=== PATIENT | male | born 1955 | race Caucasian/White ===

== ENCOUNTER 2019-06-21 07:08 | Day surgery (SDC) | payer BC ==
[2019-06-21] MEDS ORDERED: Propofol 200 MG/20 ML SDV IV ONE (07:09)
[2019-06-21] MEDS ORDERED: Lidocaine 2% 5 ML SDV INJECT ONE (07:09)
[2019-06-21] MEDS ORDERED: Lidocaine 1% PF 2 ML SDV INJECT ONE (07:09)
[2019-06-21] MEDS ORDERED: Lactated Ringers 1,000 ML IV SCH (07:15)
[2019-06-21] MEDS ORDERED: Sodium Chloride 0.9% 10 ML Syringe FLUSH PRN (07:15)
--- NOTE | 2019-06-21 09:12 | PCM.OPNOTE ---
- General Post-Op/Procedure Note Date of Surgery/Procedure: 06/21/19 Operative Procedure(s): c scope Findings: scattered diverticulosis Pre Op Diagnosis: screening Post-Op Diagnosis: scattered diverticulosis Anesthesia Technique: MAC Primary Surgeon: Frank Vora Anesthesia Provider: Fran Hodge Pathology: none Complications: None Condition: Good Free Text/Narrative:: see dictation
--- NOTE | 2019-06-21 13:38 | OR ---
DATE OF OPERATION: 06/21/2019 SURGEON: Frank Vora MD PROCEDURE PERFORMED: Colonoscopy. PREOPERATIVE DIAGNOSIS: Need for colon cancer screening. POSTOPERATIVE DIAGNOSIS: Diverticulosis. INDICATIONS FOR PROCEDURE: This is a 63-year-old white male, who presents for screening colonoscopy. He was offered and accepted same. DESCRIPTION OF OPERATION: After an excellent IV sedation was administered, digital rectal exam was performed. No marked abnormality was noted. Flexible colonoscope was inserted and advanced to the cecum. Prep was excellent. Following findings were noted. Ascending colon, unremarkable. Transverse colon, occasional diverticula. Descending colon, occasional diverticula. Sigmoid, occasional diverticula. Rectum and anus, unremarkable. Colon was deflated. Scope was removed. The patient tolerated the procedure well. RECOMMENDATIONS: Repeat colonoscopy in 10 years. /[id number] /MODL
== END 2019-06-21 10:06 | disposition home or self-care (01) ==
LOC: FB.SDS 07:08
PROVIDERS: ATTEND Surgery
DX: Z12.11 Encounter for screening for malignant neoplasm of colon (principal); K57.30 Diverticulosis of large intestine without perforation or abscess without bleeding; I12.9 Hypertensive chronic kidney disease with stage 1 through stage 4 chronic kidney disease, or unspecified chronic kidney disease; N18.3 Chronic kidney disease, stage 3 (moderate); Z88.0 Allergy status to penicillin; Z88.8 Allergy status to other drugs, medicaments and biological substances; Z79.899 Other long term (current) drug therapy
CPT/HCPCS: 45378; J2001; J2704; J7120

== ENCOUNTER 2020-04-08 18:29 | Emergency (ER) | payer BC ==
--- NOTE | 2020-04-08 18:39 | EDM.PDOC ---
ED HPI GENERAL MEDICAL PROBLEM - General Stated Complaint: POSSIBLE COVID Time Seen by Provider: 04/08/20 19:45 Source of Information: Reports: Patient History Limitations: Reports: No Limitations - History of Present Illness INITIAL COMMENTS - FREE TEXT/NARRATIVE: 64 yo gentleman with h/o CLL on chemotherapy. Presented to the ER with h/o Fever. Noted a Home temp of 101.5. Had slight cough. Was concerned and decided to come to the ER for further evaluation. No abdominal pain, nausea or vomiting. Onset: Today Onset Date: 04/08/20 Onset Time: 08:00 Duration: Hour(s):, Week(s): Associated Symptoms: Reports: Cough, Fever/Chills generalized Pain Score (Numeric/FACES): 0 - Related Data Allergies Allergy/AdvReac Type Severity Reaction Status Date / Time ibrutinib Allergy Other Verified 06/21/19 07:24 Penicillins Allergy Rash Verified 06/21/19 07:24 Home Meds: Home Meds Cetirizine [ZyrTEC] 10 mg PO DAILY 06/17/19 [History] valACYclovir HCl [Valtrex] 500 mg PO DAILY 06/17/19 [History] Past Medical History HEENT History: Reports: Impaired Vision, Sinusitis Cardiovascular History: Reports: None Respiratory History: Reports: None Gastrointestinal History: Reports: Gastritis Genitourinary History: Reports: Chronic Renal Insuffiency [employer] History: Reports: None Musculoskeletal History: Reports: None Neurological History: Reports: None Psychiatric History: Reports: None Endocrine/Metabolic History: Reports: Obesity/BMI 30+ Hematologic History: Reports: None Immunologic History: Reports: None Oncologic (Cancer) History: Reports: None Dermatologic History: Reports: None - Past Surgical History Head Surgeries/Procedures: Reports: None HEENT Surgical History: Reports: Other (See Below) Other HEENT Surgeries/Procedures: EAR SURGERY- STAPEDECTOMY GI Surgical History: Reports: Other (See Below) Other GI Surgeries/Procedures: BRONCHOSCOPY Social & Family History - Caffeine Use Caffeine Use: Reports: Coffee ED ROS GENERAL - Review of Systems Review Of Systems: See Below Constitutional: Reports: Fever HEENT: Reports: No Symptoms Respiratory: Reports: No Symptoms Cardiovascular: Reports: No Symptoms Endocrine: Reports: No Symptoms GI/Abdominal: Reports: No Symptoms : Reports: No Symptoms Musculoskeletal: Reports: No Symptoms Skin: Reports: No Symptoms Neurological: Reports: No Symptoms Psychiatric: Reports: No Symptoms Hematologic/Lymphatic: Reports: No Symptoms Immunologic: Reports: No Symptoms ED EXAM, GENERAL - Physical Exam Exam: See Below Exam Limited By: No Limitations General Appearance: Alert, WD/WN, No Apparent Distress Eye Exam: Bilateral Eye: EOMI, PERRL Ears: Normal External Exam, Normal Canal, Hearing Grossly Normal, Normal TMs Ear Exam: Bilateral Ear: Auricle Normal, Canal Normal Nose: Normal Inspection, Normal Mucosa, No Blood Throat/Mouth: Normal Inspection, Normal Lips, Normal Teeth, Normal Gums, Normal Oropharynx, Normal Voice Head: Atraumatic, Normocephalic Neck: Normal Inspection, Supple, Non-Tender, Full Range of Motion Respiratory/Chest: No Respiratory Distress, Lungs Clear, Normal Breath Sounds, No Accessory Muscle Use, Chest Non-Tender Cardiovascular: Normal Peripheral Pulses, Regular Rate, Rhythm, No Edema, No Gallop, No JVD, No Murmur GI/Abdominal: Normal Bowel Sounds, Soft, Non-Tender, No Organomegaly, No Distention Back Exam: Normal Inspection, Full Range of Motion Extremities: Normal Inspection, Normal Range of Motion, Non-Tender Neurological: Alert, Oriented, CN II-XII Intact, Normal Cognition Psychiatric: Normal Affect, Normal Mood Skin Exam: Warm, Dry, Intact, Normal Color, No Rash Lymphatic: No Adenopathy Course - Vital Signs Last Recorded V/S: Last Vital Signs Temp 36.8 C 04/08/20 19:55 Pulse 95 04/08/20 19:55 Resp 20 04/08/20 19:55 BP 138/73 04/08/20 19:55 Pulse Ox 97 04/08/20 19:55 - Orders/Labs/Meds Orders: Active Orders 24 hr Category Date Time Status CXR [Chest 2V] [CR] Stat Exams 04/08/20 18:40 Taken Isolation [COMM] Routine Oth 04/08/20 18:40 Ordered Labs: Laboratory Tests 04/08/20 04/08/20 04/08/20 Range/Units 18:37 18:48 18:48 WBC 11.0 H (3.2-10.1) x10-3/uL RBC 4.17 (3.90-5.90) x10(6)uL Hgb 13.2 (12.9-17.7) g/dL Hct 39.6 (38.3-50.1) % MCV 95.0 (80.8-98.7) fL MCH 31.6 (27.0-33.3) pg MCHC 33.3 (28.7-35.3) g/dL RDW 12.9 (12.4-15.0) % Plt Count 126 (117-477) x10(3)uL MPV 9.6 (6.7-11.0) fL Neut % (Auto) 82.8 H (40.3-71.8) % Lymph % (Auto) 10.6 L (15.8-45.3) % Holmes % (Auto) 5.7 (5.5-15.2) % Eos % (Auto) 0.7 (0.1-6.8) % Baso % (Auto) 0.2 L (0.3-3.8) % Neut # (Auto) 9.1 H (1.7-6.9) x10-3/uL Lymph # (Auto) 1.2 (0.5-4.5) x10-3/uL Holmes # (Auto) 0.6 (0.0-1.2) x10-3/uL Eos # (Auto) 0.1 (0.0-0.6) x10-3/uL Baso # (Auto) 0.0 (0.0-0.3) x10-3/uL Sodium 135 (135-145) mmol/L Potassium 4.1 (3.5-5.3) mmol/L Chloride 100 (100-110) mmol/L Carbon Dioxide 24 (21-32) mmol/L BUN 26 H (7-18) mg/dL Creatinine 1.5 H (0.70-1.30) mg/dL Est Cr Clr Drug Dosing TNP Estimated GFR (MDRD) 47 L (>60) BUN/Creatinine Ratio 17.3 (9-20) Glucose 110 (80-116) mg/dL Calcium 8.7 (8.6-10.2) mg/dL Total Bilirubin 1.1 (0.1-1.3) mg/dL AST 17 (5-25) IU/L ALT 20 (12-36) U/L Alkaline Phosphatase 55 L (56-112) IU/L C-Reactive Protein (0.5-0.9) mg/dL Total Protein 6.6 (6.0-8.0) g/dL Albumin 3.9 (3.2-4.6) g/dL Globulin 2.7 g/dL Albumin/Globulin Ratio 1.4 Urine Color (YELLOW) Urine Appearance (CLEAR) Urine pH (5.0-6.5) Ur Specific [place] (1.010-1.025) Urine Protein (NEGATIVE) mg/dL Urine Glucose (UA) (NORMAL) mg/dL Urine Ketones (NEGATIVE) mg/dL Urine Occult Blood (NEGATIVE) Urine Nitrite (NEGATIVE) Urine Bilirubin (NEGATIVE) Urine Urobilinogen (NEGATIVE) mg/dL Ur Leukocyte Esterase (NEGATIVE) Urine RBC (0-5) Urine WBC (0-5) Ur Squamous Epith Cells (NS,R,O) Urine Bacteria (NS) SARS-CoV-2 RNA (JOCELYN) Negative (NEGATIVE) 04/08/20 04/08/20 Range/Units 18:48 19:00 WBC (3.2-10.1) x10-3/uL RBC (3.90-5.90) x10(6)uL Hgb (12.9-17.7) g/dL Hct (38.3-50.1) % MCV (80.8-98.7) fL MCH (27.0-33.3) pg MCHC (28.7-35.3) g/dL RDW (12.4-15.0) % Plt Count (117-477) x10(3)uL MPV (6.7-11.0) fL Neut % (Auto) (40.3-71.8) % Lymph % (Auto) (15.8-45.3) % Holmes % (Auto) (5.5-15.2) % Eos % (Auto) (0.1-6.8) % Baso % (Auto) (0.3-3.8) % Neut # (Auto) (1.7-6.9) x10-3/uL Lymph # (Auto) (0.5-4.5) x10-3/uL Holmes # (Auto) (0.0-1.2) x10-3/uL Eos # (Auto) (0.0-0.6) x10-3/uL Baso # (Auto) (0.0-0.3) x10-3/uL Sodium (135-145) mmol/L Potassium (3.5-5.3) mmol/L Chloride (100-110) mmol/L Carbon Dioxide (21-32) mmol/L BUN (7-18) mg/dL Creatinine (0.70-1.30) mg/dL Est Cr Clr Drug Dosing Estimated GFR (MDRD) (>60) BUN/Creatinine Ratio (9-20) Glucose (80-116) mg/dL Calcium (8.6-10.2) mg/dL Total Bilirubin (0.1-1.3) mg/dL AST (5-25) IU/L ALT (12-36) U/L Alkaline Phosphatase (56-112) IU/L C-Reactive Protein 5.8 H* (0.5-0.9) mg/dL Total Protein (6.0-8.0) g/dL Albumin (3.2-4.6) g/dL Globulin g/dL Albumin/Globulin Ratio Urine Color Yellow (YELLOW) Urine Appearance Clear (CLEAR) Urine pH 5.0 (5.0-6.5) Ur Specific [place] 1.015 (1.010-1.025) Urine Protein Trace (NEGATIVE) mg/dL Urine Glucose (UA) Normal (NORMAL) mg/dL Urine Ketones 15 H (NEGATIVE) mg/dL Urine Occult Blood Negative (NEGATIVE) Urine Nitrite Negative (NEGATIVE) Urine Bilirubin Negative (NEGATIVE) Urine Urobilinogen Normal (NEGATIVE) mg/dL Ur Leukocyte Esterase Negative (NEGATIVE) Urine RBC 0-5 (0-5) Urine WBC 0-5 (0-5) Ur Squamous Epith Cells Few H (NS,R,O) Urine Bacteria Rare H (NS) SARS-CoV-2 RNA (JOCELYN) (NEGATIVE) Meds: Medications Discontinued Medications Generic Name Dose Route Start Last Admin Trade Name Freq PRN Reason Stop Dose Admin Azithromycin 500 mg 04/08/20 20:17 04/08/20 20:23 Zithromax PO 04/08/20 20:18 500 mg ONETIME ONE Administration Departure - Departure Time of Disposition: 20:30 Disposition: Home, Self-Care 01 Condition: Good Clinical Impression: Fever - Discharge Information *PRESCRIPTION DRUG MONITORING PROGRAM REVIEWED*: No *COPY OF PRESCRIPTION DRUG MONITORING REPORT IN PATIENT TRAE: No Instructions: Fever, Adult, Azithromycin tablets Referrals: PCP,None [Primary Care Provider] - Forms: ED Department Discharge Sepsis Event Note (ED) - Focused Exam Vital Signs: Vital Signs Temp Pulse Resp BP Pulse Ox 04/08/20 19:55 36.8 C 95 20 138/73 97 04/08/20 18:32 38.0 C 110 H 17 150/78 H 100 - Problem List & Annotations (1) Fever SNOMED Code(s): 755393077 Code(s): R50.9 - FEVER, UNSPECIFIED Status: Acute Current Visit: Yes - My Orders Last 24 Hours: My Active Orders 04/08/20 18:40 CXR [Chest 2V] [CR] Stat Isolation [COMM] Routine - Assessment/Plan Last 24 Hours: My Active Orders 04/08/20 18:40 CXR [Chest 2V] [CR] Stat Isolation [COMM] Routine
[2020-04-08] MEDS ORDERED: Azithromycin 500 MG Tab PO ONE (20:17)
--- NOTE | 2020-04-10 10:39 | CR ---
INDICATION: Fever. CHEST TWO VIEWS: PA and lateral views of the chest were obtained 04/08/20 and revealed bridging hyperostotic changes in the mid to lower thoracic spine anteriorly and right laterally. The heart is normal in size and shaped, mediastinum is essentially unremarkable. A definite active infiltrate or effusion was not identified. However, there is mild bronchial wall cuffing at the lung bases, which may be on the fibrosis and/or active peribronchial disease, and should be correlated clinically. IMPRESSION: 1. Bronchial wall cuffing at the lung bases is mild and nonspecific - correlate clinically. 2. 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 MTDD
== END 2020-04-08 20:57 | disposition home or self-care (01) ==
LOC: FB.ED 18:29
DX: R50.9 Fever, unspecified (principal); R05 Cough; N18.9 Chronic kidney disease, unspecified; E66.9 Obesity, unspecified; Z68.29 Body mass index [BMI] 29.0-29.9, adult; Z85.6 Personal history of leukemia; Z88.0 Allergy status to penicillin; Z88.8 Allergy status to other drugs, medicaments and biological substances; Z20.822 Contact with and (suspected) exposure to COVID-19
CPT/HCPCS: 36415; 71046; 80053; 81001; 85025; 86140; 87635; 87804; 99283; A9270; U0002